=== PATIENT | female | born 1965 | race African-American/Black ===

== ENCOUNTER 2019-03-06 13:18 | Outpatient (CLI) | payer MEDICAID ==
[~2019-03-06 13:18] MED LIST: ASPIR-LOW81 MG ORAL; ATORVASTATIN CA20 MG ORAL; IBUPROFEN600 MG ORAL; METOPROLOL TART50 M1 ORAL; NKM; SULFASALAZINE500 MG ORAL; VITAMIN D400 INTLU ORAL
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
== END 2019-03-06 16:01 | disposition home or self-care (01) ==
LOC: PAN 13:18
DX: K29.70 Gastritis, unspecified, without bleeding (principal); K31.7 Polyp of stomach and duodenum; K63.5 Polyp of colon; Z88.6 Allergy status to analgesic agent
CPT/HCPCS: G0463